=== PATIENT | female | born 1960 | race Caucasian/White ===

== ENCOUNTER 2022-02-06 13:04 | Outpatient (CLI) | payer MEDICAID, SELFPAY ==
--- NOTE | 2022-02-06 13:23 | XR_ITS ---
WS: [id number] XR hip RT 2-3V wo/w pel* [id number] REASON FOR EXAM: R HIP PAIN/R SCIATICA/PERSONAL HX OF TRAUMATIC FX (HEALED) FINDINGS: No fracture or focal bone lesion. Severe narrowing of the joint space with subchondral sclerosis and cystic change in the acetabulum an d femoral head. There is flattening of the weightbearing surface of the femoral head. Moderate osteop hyte formation from the margin of the acetabulum and femoral head. No soft tissue abnormality. XR/XR hip RT 2-3V wo/w pel* [id number] IMPRESSION: Severe osteoarthritis of the right hip joint.
--- NOTE | 2022-02-06 13:42 | XR_ITS ---
WS: [id number] XR hand RT min 3V* [id number] REASON FOR EXAM: PAIN IN RIGHT HAND FINDINGS: No fracture or focal bone lesion. Minimal joint space narrowing with subchondral sclerosis and small marginal osteophytes in the PIP an d DIP joints of the first through the fifth fingers. Mild lateral subluxation of the distal first metacarpal in relation to the first proximal phalanx. Severe subluxation with obliteration of the joint space and extensive subchondral sclerosis and cysti c change in the carpal metacarpal joint of the thumb. Extensive medial and distal bony overgrowth of the carpal bone. Incidentally noted are multiple cysts within the remaining carpal bones. No soft tissue abnormality. XR/XR hand RT min 3V* [id number] IMPRESSION: Severe osteoarthritis of the base of the thumb.
== END 2022-02-06 13:05 | disposition home or self-care (01) ==
LOC: RAD 13:12
PROVIDERS: Visit Provider Family Medicine
DX: M54.30 Sciatica, unspecified side (principal); Z87.81 Personal history of (healed) traumatic fracture; M16.11 Unilateral primary osteoarthritis, right hip; M19.041 Primary osteoarthritis, right hand
CPT/HCPCS: 73130; 73502

== ENCOUNTER → 2022-02-27 14:23 | Outpatient (BNVA) | payer MEDICAID, SELFPAY | PROVIDERS: Referring Provider Family Medicine; Visit Provider Specialist | DX: M16.0 Bilateral primary osteoarthritis of hip (principal); M25.551 Pain in right hip | CPT/HCPCS: 36415; 73502; 82565; 85025; 85651; 86140; 86160; 86162; 86200; 86235; 86255; 86376; 86431 ==

== ENCOUNTER 2022-04-14 07:54 | Day surgery (SDC) | payer MEDICAID, SELFPAY ==
[2022-04-13 13:10] VITALS: BMI 21.9
[2022-04-14] VITALS (15 sets, daily range): BP systolic 116–156; BP diastolic 79–93; PULSE 72–105; RESP 16–20; TEMP 36.2–36.9; O2SAT 94–100
[2022-04-14] MEDS: sodium chloride 0.9% 1,000 ML 30 ML IV (08:54)
--- NOTE | 2022-04-14 09:14 | P.ANESASSM_ITS ---
Pre-Anesthetic Assessment Height/Weight: Height 1.6 m Weight 56.245 kg Temp Pulse Resp BP Pulse Ox 98.4 F 88 20 H 154/90 99 04/14/22 08:21 04/14/22 08:21 04/14/22 08:21 04/14/22 08:21 04/14/22 08:21 Preop Diagnosis: hematochezia Operation Date: 04/14/22 09:30 Proposed Procedures p 23343 EGD/ [id number] Colonoscopy possible hemorrhoid banding 27635,K21.9,K62.5(Not Applicable) - DO lucas Sierra Colonoscopy(Not Applicable) - DO lucas Sierra Hemorroidectomy(Not Applicable) - DO Princess Sierra anesthetic complications: None Was Beta Ivone taken within 24 hours: N/A Was Clonidine taken within 24 hours: N/A Last intake: Intake Last Liquid Date 04/13/22 Last Liquid Time 20:00 Last Solid Date 04/12/22 Last Solid Time 16:00 Social No alcohol and No tobacco Exam alert, oriented x 3, clear to auscultation bilaterally and regular rate & rhythm Airway Mallampati: Class II Dentition: full GI Gastroesophageal Reflux Disease Metabolic Sciatica, piriformis syndrome. Needs pillow between legs when she lays on side. States if we are too rough with her back there, she may be unable to walk out of hospital afterwards Anesthetic Plan ASA status: 2 Anesthesia: General Risk of > 500 ml blood loss (7ml/kg in children): No Medications/Allergies Home Medications Medication Instructions Recorded Confirmed Last Taken Type lisinopril 20 mg tablet 20 mg PO DAILY 02/27/22 04/14/22 04/13/22 History meloxicam 7.5 mg tablet (Mobic) 7.5 mg PO DAILY 02/27/22 04/14/22 04/13/22 History omeprazole 20 mg capsule,delayed 20 mg PO DAILY 02/27/22 04/14/22 04/14/22 04:00 History release topiramate 50 mg capsule,extended 50 mg PO DAILY 02/27/22 04/14/22 04/13/22 Hi story release 24 hr methocarbamol 500 mg tablet 500 mg PO Q8H #30 tab 04/06/22 04/14/22 04/13/22 Rx Allergies Allergy/AdvReac Type Severity Reaction Status Date / Time No Known Allergies Allergy Unverified 04/11/22 08:08 Current Medications Generic Name Dose Route Start Last Admin Trade Name Khrisq PRN Reason Stop Dose Admin Sodium Chloride 1,000 mls @ 30 mls/hr 04/14/22 08:15 04/14/22 08:54 Sodium Chloride 0.9% IV 04/15/22 08:14 30 mls/hr .Q24H SHERRI Administration PFSH Anesthesia Medical History (Updated 04/11/22 @ 08:57 by Bradley Gaona DO) Fibromyalgia GERD (gastroesophageal reflux disease) GERD (gastroesophageal reflux disease) Hypertension Polyarthralgia Surgical History (Updated 04/11/22 @ 08:54 by Bradley Gaona DO) H/O tubal ligation History of esophagogastroduodenoscopy (EGD) 1986 Hx of breast augmentation Family History Other Dementia Social History Smoking and tobacco status: never smoked Second hand smoke exposure: No Smoking risk assessment/counseling performed?: No Alcohol intake: never Adopted: No Caregiver/support person: No Lives independently: Yes Household members: none Housing: House Number of children: 1 Number of grandchildren: 0 Highest education level completed: Associate Degree: Academic Program service: No Current occupational status: unemployed Current occupational exposures/hazards: No Pets and animals: Yes History of recent travel: No Sexually active: No Current gender identity: Female Special flaco needs: No Agree to transfusion: Yes Data Anesthesia : 04/14/22 08:46 Cardiac Studies: No Data to Display
[2022-04-14 09:17] LABS: Anion Gap 18.8 (5-19); Blood Urea Nitrogen 17 mg/dL (6-20); Calcium 9.9 mg/dL (8.5-10.5); Carbon Dioxide 24 mmol/L (22-29); Chloride 102 mmol/L (98-107); Glomerular Filtration Rate 85.6 mL/min (90-130); Glucose 110 mg/dL (65-115); Osmolality Calculated 294 mOsm/kg (285-295); Potassium 3.8 mmol/L (3.5-5.1); Sodium 141 mmol/L (136-145)
--- NOTE | 2022-04-14 09:18 | P.HPUD_ITS ---
Surgery/Procedure H&P Update DATE OF PROCEDURE: April 14, 2022 DATE H&P PERFORMED: 04/11/22 PREOP DIAGNOSIS: hematochezia PLANNED PROCEDURE: Operation Date: 04/14/22 09:30 Proposed Procedures p 38696 EGD/ 17438 Colonoscopy possible hemorrhoid banding 94066,K21.9,K62.5(Not Applicable) - Bradley Gaona DO s Colonoscopy(Not Applicable) - DO lucas Sierra Hemorroidectomy(Not Applicable) - Bradley Gaona DO
--- NOTE | 2022-04-14 09:18 | W.PM.OPSUD ---
Surgery/Procedure H&P Update DATE OF PROCEDURE: April 14, 2022 DATE H&P PERFORMED: 04/11/22 PREOP DIAGNOSIS: hematochezia PLANNED PROCEDURE: Operation Date: 04/14/22 09:30 Proposed Procedures p 19504 EGD/ 73248 Colonoscopy possible hemorrhoid banding 04968,K21.9,K62.5(Not Applicable) - Bradley Gaona DO s Colonoscopy(Not Applicable) - DO lucas Sierra Hemorroidectomy(Not Applicable) - Bradley Gaona DO
[2022-04-14] MEDS: fentaNYL 50 mcg/mL INJ 2mL IVP ×2 (11:02→11:09)
--- NOTE | 2022-04-14 16:27 | ANE.PACU2 ---
Inpatient post-anesthesia follow up: Airway intact: Yes Vital signs: Temperature 98 F Pulse Rate 81 Respiratory Rate 16 Blood Pressure 156/86 Pulse Oximetry 100 Oxygen Delivery Me thod Room Air Oxygen Flow Rate Fraction of Inspir ed Oxygen Hydration adequate: Yes Nausea and vomiting: No Pain level: 2 Mental status: Baseline
== END 2022-04-14 12:13 | disposition home or self-care (01) ==
PROVIDERS: Anesthesiology; PCP Nurse Practitioner Family; Visit Provider Surgery
PROC: 0DJD8ZZ Inspection of Lower Intestinal Tract, Via Natural or Artificial Opening Endoscopic (ICD-10-PCS; CPT 45378; 2022-04-14 09:30)
PROC: (CPT 45378; 2022-04-14 09:30)
DX: K62.5 Hemorrhage of anus and rectum (principal); K21.9 Gastro-esophageal reflux disease without esophagitis; K64.1 Second degree hemorrhoids; I10 Essential (primary) hypertension; M79.7 Fibromyalgia
CPT/HCPCS: 45378; 46221; 36415; 80048; J2704; J3010; J7030